=== PATIENT | female | born 1970 | race Caucasian/White ===

== ENCOUNTER 2021-01-29 08:48 | Inpatient (IN) | payer OTHER ==
[2021-01-29 08:56] VITALS: BMI 30.7
[2021-01-29 11:07] LABS: BASO % 1.9 % (0-2.0); HEMATOCRIT 22.7 % (32.4-45.2); LYMPH % 34.7 % (8-40); MCHC 27.1 g/dl (32.0-36.0); MEAN CELL VOLUME 53.6 fl (80-96); MEAN PLT VOLUME 9.1 fl (7.5-11.1); MONO % 10.4 % (3.8-10.2); PLATELET COUNT 562 K/MM3 (134-434); RBC 4.23 M/mm3 (3.60-5.2); RDW 21.3 % (11.6-15.6); WHITE BLOOD COUNT 6.6 K/mm3 (4.0-10.0)
[2021-01-29 11:08] LABS: MCH 14.5 pg (25.7-33.7)
[2021-01-29 11:09] LABS: HEMOGLOBIN 6.1 GM/dL (10.7-15.3)
[2021-01-29 11:13] LABS: INR 1.16 (0.83-1.09)
[2021-01-29 11:25] LABS: POTASSIUM 4.3 mmol/L (3.5-5.1)
[2021-01-29 11:27] LABS: BLOOD UREA NITROGEN 8.8 mg/dL (7-18); CALCIUM 9.3 mg/dL (8.5-10.1)
[2021-01-29 11:28] LABS: ALBUMIN 3.8 g/dl (3.4-5.0)
[2021-01-29 11:31] LABS: CREATININE 0.7 mg/dL (0.55-1.3)
[2021-01-29 11:32] LABS: BILIRUBIN,TOTAL 0.4 mg/dL (0.2-1); TOT PROT 8.5 g/dl (6.4-8.2)
[2021-01-29 12:01] LABS: ANISOCYTOSIS 3+; MACROCYTOSIS 0; OVALOCYTE 1+; PLATELET ESTIMATE INCREASED; TARGET CELLS 1+
[2021-01-29] MEDS ORDERED: amLODIPine BESYLATE 2.5 MG TABLET (FP) ONE (19:36)
[2021-01-29] MEDS: amLODIPine BESYLATE 2.5 MG TABLET (FP) PO SCH (19:42)
[2021-01-30 06:48] LABS: BASO % 1.5 % (0-2.0); EOS % 3.1 % (0-4.5); HEMATOCRIT 26.2 % (32.4-45.2); HEMOGLOBIN 7.6 GM/dL (10.7-15.3); LYMPH % 31.3 % (8-40); MEAN CELL VOLUME 58.8 fl (80-96); MEAN PLT VOLUME 8.9 fl (7.5-11.1); MONO % 13.2 % (3.8-10.2); NEUT % 50.9 % (42.8-82.8); PLATELET COUNT 514 K/MM3 (134-434); RBC 4.45 M/mm3 (3.60-5.2); RDW 26.3 % (11.6-15.6); RETICULOCYTES 1.66 % (0.5-1.5); WHITE BLOOD COUNT 6.6 K/mm3 (4.0-10.0)
[2021-01-30 06:49] LABS: POTASSIUM 3.9 mmol/L (3.5-5.1)
[2021-01-30 06:52] LABS: CALCIUM 8.8 mg/dL (8.5-10.1)
[2021-01-30 06:53] LABS: BLOOD UREA NITROGEN 10.4 mg/dL (7-18)
[2021-01-30 06:56] LABS: CREATININE 0.7 mg/dL (0.55-1.3); MCH 17.1 pg (25.7-33.7)
[2021-01-30 07:17] VITALS: TEMP 98.2
[2021-01-30] MEDS ORDERED: amLODIPine BESYLATE 2.5 MG TABLET (FP) ONE ×2 (10:37→10:47)
[2021-01-30] MEDS: amLODIPine BESYLATE 2.5 MG TABLET (FP) PO SCH (10:50)
[2021-01-30 13:11] VITALS: BP 158/85; PULSE 79
[2021-01-31 13:07] LABS: TRANSGLUTAMINASE IGA < 2 U/mL (0-3); TRANSGLUTAMINASE IGG < 2 U/mL (0-5)
== END 2021-01-30 13:00 | disposition home or self-care (01) | DRG 663 ==
LOC: JER 08:48 → JERBED 13:17
PROVIDERS: ADMIT Internal Medicine; ATTEND Internal Medicine
PROC: 30233N1 Transfusion of Nonautologous Red Blood Cells into Peripheral Vein, Percutaneous Approach (ICD-10-PCS; principal; 2021-01-29)
DX: D50.9 Iron deficiency anemia, unspecified (principal); I10 Essential (primary) hypertension; D25.9 Leiomyoma of uterus, unspecified; N92.0 Excessive and frequent menstruation with regular cycle
CPT/HCPCS: 36415; 36430; 36511; 71046-TC-FY; 74177-TC; 76830-TC; 80048; 80053; 82272; 82607; 82728; 83516; 83540; 83550; 83615; 84443; 84703; 85025; 85045; 85610; 86140; 86850; 86900; 86901; 86922; 93005; 93010; 99285-25; C9803; P9038; P9058; Q9967; U0003; U0005

== ENCOUNTER 2022-12-24 16:00 | Emergency (ER) | payer OTHER ==
[2022-12-24 16:27] VITALS: RESP 16; TEMP 97.9; BMI 38.3
[2022-12-24 17:27] VITALS: BP 124/67; PULSE 60
[2022-12-24 17:28] LABS: HEMATOCRIT 36.3 % (32.4-45.2); MCH 27.4 pg (25.7-33.7); MCHC 33.2 g/dl (32.0-36.0); MEAN CELL VOLUME 82.7 fl (80-96); MEAN PLT VOLUME 8.1 fl (7.5-11.1); PLATELET COUNT 429.9 10^3/uL (134-434); RBC 4.39 10^6/uL (3.60-5.2); RDW 14.2 % (11.6-15.6)
[2022-12-24 17:38] LABS: ALBUMIN 3.5 g/dl (3.4-5.0); BILIRUBIN,TOTAL 0.3 mg/dl (0.2-1); CALCIUM 9.4 mg/dl (8.5-10); CREATININE 0.9 mg/dl (0.55-1.3); TOT PROT 7.2 g/dl (6.4-8.2)
[2022-12-24 20:27] LABS: PLATELET ESTIMATE ADEQUATE
== END 2022-12-24 18:55 | disposition home or self-care (01) ==
LOC: FER 16:00
DX: S82.891A Other fracture of right lower leg, initial encounter for closed fracture (principal); R42 Dizziness and giddiness; W10.8XXA Fall (on) (from) other stairs and steps, initial encounter
CPT/HCPCS: 36415; 73590-TC-RT-FY; 73610-TC-RT-FY; 73630-TC-RT-FY; 80053; 82550; 84484; 85025; 93005; 99285-25

== ENCOUNTER 2023-01-01 11:46 | Day surgery (SDC) | payer OTHER ==
[2022-12-31 12:29] VITALS: BMI 41.5
[2023-01-01] MEDS ORDERED: BUPIVACAINE HCL/PF 0.5% (5MG/ML) 10 ML VIAL ONE (13:22)
[2023-01-01] MEDS ORDERED: BUPIVACAINE HCL/PF 0.5% (5 MG/ML) 30 ML VIAL IJ ONE (13:22)
[2023-01-01] MEDS ORDERED: MIDAZOLAM HCL 2 MG/2 ML SINGLE DOSE VIAL ONE (13:56)
[2023-01-01] MEDS ORDERED: DEXAMETHASONE SOD PHOSPHATE 4 MG/1 ML VIAL ONE (14:18)
[2023-01-01] MEDS ORDERED: ceFAZolin SODIUM 1 GM VIAL ONE (14:18)
[2023-01-01] MEDS ORDERED: PROPOFOL 20 ML ONE ×2 (14:18→14:24)
[2023-01-01] MEDS ORDERED: ONDANSETRON 4 MG/2 ML VIAL ONE (14:18)
[2023-01-01] MEDS ORDERED: ONDANSETRON 4 MG/2 ML VIAL IVPUSH PRN (14:35)
[2023-01-01] MEDS ORDERED: oxyCODONE HCL 5 MG TABLET PO PRN (14:35)
[2023-01-01] MEDS ORDERED: LACTATED RINGERS SOLUTION 1,000 ML IV SCH (14:45)
[2023-01-01 16:33] VITALS: RESP 18; TEMP 97.7
[2023-01-01 17:31] VITALS: PULSE 64
[2023-01-01 18:04] VITALS: BP 126/62
== END 2023-01-01 18:15 | disposition home or self-care (01) ==
LOC: FASU 11:46
PROVIDERS: ATTEND Orthopaedic Surgery
PROC: 0QSJ04Z Reposition Right Fibula with Internal Fixation Device, Open Approach (ICD-10-PCS; principal; 2023-01-01 14:32)
DX: S82.61XA Displaced fracture of lateral malleolus of right fibula, initial encounter for closed fracture (principal); X58.XXXA Exposure to other specified factors, initial encounter; Y93.9 Activity, unspecified; Y92.9 Unspecified place or not applicable
CPT/HCPCS: 27792; C1713; 84703; 94760